=== PATIENT | male | born 2000 | race Caucasian/White ===

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

== ENCOUNTER 2018-10-21 05:31 | Emergency (ER) | payer OTHER ==
--- NOTE | 2018-10-21 06:20 | ED ---
Upper Extremity Pain - HPI Summary HPI Summary: Patient is a 18-year-old male who presents to emergency department for a finger injury that occurred yesterday while playing flag football. Patient states he went to reach for the ball when fourth digit of right hand was injured. No other injuries were sustained. Symptoms are mild in severity. Moving finger makes symptoms worse. Nothing makes symptoms better. Patient notes he took a dose of Advil with no improvement of pain. - History of Current Complaint Chief Complaint: EDExtremityUpper Stated Complaint: R RING FINGER INJURY PER PT Time Seen by Provider: 10/21/18 06:18 Hx Obtained From: Patient - Allergies/Home Medications Allergies/Adverse Reactions: Allergies Allergy/AdvReac Type Severity Reaction Status Date / Time amoxicillin [From Augmentin] Allergy Rash Verified 11/26/17 14:43 clavulanic acid Allergy Rash Verified 11/26/17 14:43 [From Augmentin] PMH/Surg Hx/FS Hx/Imm Hx Previously Healthy: Yes Endocrine/Hematology History: Denies: Hx Diabetes, Hx Thyroid Disease Cardiovascular History: Denies: Hx Hypertension Respiratory History: Denies: Hx Asthma, Hx Chronic Obstructive Pulmonary Disease (COPD) GI History: Denies: Hx Ulcer - Surgical History Surgery Procedure, Year, and Place: tonsillectomy Infectious Disease History: No Infectious Disease History: Denies: Hx Hepatitis, Hx Human Immunodeficiency Virus (HIV), Traveled Outside the [place] in Last 30 Days - Family History Known Family History: Positive: None, Non-Contributory - Social History Occupation: Student Lives: Dormitory/Roommates Alcohol Use: None Substance Use Type: Reports: None Smoking Status (MU): Never Smoked Tobacco Review of Systems Positive: Other - pain to distal 4th digit of right hand Positive: Bruising All Other Systems Reviewed And Are Negative: Yes Physical Exam Triage Information Reviewed: Yes Vital Signs On Initial Exam: Initial Vitals Temp Pulse Resp BP Pulse Ox 97.4 F 64 16 110/65 100 10/21/18 05:32 10/21/18 05:32 10/21/18 05:32 10/21/18 05:32 10/21/18 05:32 Vital Signs Reviewed: Yes Appearance: Positive: Well-Appearing - Pt. sitting on bed in NAD. Friend present. Skin: Positive: Warm, Dry Head/Face: Positive: Normal Head/Face Inspection Eyes: Positive: Normal, EOMI Neck: Positive: Supple Musculoskeletal: Positive: Other - Ecchymosis and pain to distal 4th digit of right hand. Full ROM of digit with mild pain. No proximal hand or wrist pain. no breaks in skin. No nail involvement. Neurological: Positive: Normal, CN Intact II-III Psychiatric: Positive: Affect/Mood Appropriate Procedures - Splinting Right 4th Digit Pre-Made Type: finger splint Pre-Proc Neuro Vasc Exam: normal Post-Proc Neuro Vasc Exam: normal Splint Applied by Provider: [facility] - Vital Signs Vital Signs Temp Pulse Resp BP Pulse Ox 10/21/18 05:32 97.4 F 64 16 110/65 100 - Laboratory Lab Statement: Any lab studies that have been ordered have been reviewed, and results considered in the medical decision making process. Course/Dx - Course Course Of Treatment: Patient presenting with minor finger injury. X-ray shows a distal tuft fracture of 4th digit, reading per myself. Finger splint was placed. When they pain medication prescribed for severe pain. Advised Tylenol or Motrin for pain as directed. Patient to follow up with [facility] or the orthopedic clinic. To ice and elevate intermittently. Patient understands and agrees with plan. - Diagnoses Differential Diagnosis/HQI/PQRI: Positive: Contusion, Fracture (Closed), Strain , Sprain Provider Diagnoses: Finger fracture Discharge ED - Sign-Out/Discharge Documenting (check all that apply): Patient Departure Patient Received Moderate/Deep Sedation with Procedure: No - Discharge Plan Condition: Good Disposition: HOME Prescriptions: traMADol TAB* [Ultram*] 50 mg PO Q6HR PRN #4 tab MDD 4 PRN Reason: Pain - Moderate Patient Education Materials: Finger Fracture (ED) Forms: *School Release Referrals: [facility] [Outside] Tanya Reyna MD [Medical Doctor] - Additional Instructions: Schedule a follow up appointment with the orthopedic clinic Wear splint Tylenol or Motrin as directed for mild pain Ultram as directed for severe pain Ice and elevate Return to ER if symptoms change or worsen - Billing Disposition and Condition Condition: GOOD Disposition: Home - Attestation Statements Provider Attestation: I was available for consult. This patient was seen by the MARLENE. The patient was not presented to, seen by, or examined by me. -Nati
[2018-10-21 07:32] VITALS: BP 100/58
--- NOTE | 2018-10-21 11:33 | PN ---
Progress Note - Progress Note Date of Service: 10/20/18 Note: Final xray read per radiology: IMPRESSION: NONDISPLACED FRACTURE OF THE BASE OF THE PROXIMAL PHALANX OF THE FOURTH DIGIT. R2 Preliminary Imaging Read R2 Noted in ED. No change in treatment needed. <Estevan López - Last Filed: 10/21/18 11:31> Attestation Statement Provider Attestation: I was available for consult. This patient was seen by the MARLENE. The patient was not presented to, seen by, or examined by me. -Nati <Lynn Cabrera - Last Filed: 10/21/18 11:58>
== END 2018-10-21 07:33 | disposition home or self-care (01) ==
LOC: ED 05:31
DX: S62.644A Nondisplaced fracture of proximal phalanx of right ring finger, initial encounter for closed fracture (principal); W22.8XXA Striking against or struck by other objects, initial encounter; Y93.62 Activity, american flag or touch football; Y92.9 Unspecified place or not applicable; Z88.1 Allergy status to other antibiotic agents
CPT/HCPCS: 99282